=== PATIENT | male | born 1995 | race Caucasian/White ===

== ENCOUNTER 2017-05-25 21:54 | Emergency (ER) | payer OTHER ==
[~2017-05-25] VITALS: Ht 177.8 cm; Wt 90.4 kg
[~2017-05-25 21:54] MED LIST: ALBU1AER9 INH; BECL0.3A INH; MTR/400 PO; VLT500 PO
[2017-05-25 22:04] VITALS: TEMP 37.5; Ht 177.8 cm; Wt 90.4 kg
[2017-05-25 22:15] VITALS: O2SAT 94
[2017-05-25 23:02] LABS: BUN/CREATININE RATIO 13.7 (10-20); CALCIUM 8.3 mg/dl (8.5-10.1); CREATININE 1.02 mg/dl (0.60-1.40); POTASSIUM 3.5 mmol/L (3.5-5.1)
--- NOTE | 2017-05-26 03:38 | EMERGENCY ROOM VISIT NOTE ---
History Report prepared by Scribe: Violet Mckeon Under the Supervision of: Dr. Shai Sebastian M.D. First contact with patient: 21:57 Chief Complaint: ALCOHOL OVERDOSE Stated Complaint: ETOH History of Present Illness The patient is a 21 year old male who presents to the Emergency Room with complaints of an alcohol overdose. He was brought to the ED via EMS. Nursing staff reports he was drinking at [facility] downw all day. The patient denies any recent trauma or injuries. He has no complaints at today's visit. EMS reports he vomited once in the field. Pt denies LOC, headache, fevers, chills, diaphoresis, visual changes, neck pain, chest pain, breathing difficulties, abdominal pain, back pain, urinary symptoms, numbness, weakness, lymphadenopathy , rash, or other complaints. Source of History: patient, EMS, nursing staff History Limited By: intoxication Onset: APPLICATION ARCHITECT Position: other (global) Timing: constant Associated Symptoms: + nausea, + vomiting Review of Systems See HPI for pertinent positives and negatives. ROS is limited secondary to patients current condition. Past Medical & Surgical Medical Problems: (1) Asthma (2) Meningitis (3) Pneumonia Surgical Problems: (1) History of tonsillectomy Family History FH: heart disease Hypertension Social History Smoking Status: Never Smoker Alcohol Use: occasionally Drug Use: none Marital Status: single Housing Status: lives with roommate Occupation Status: [employer] Current/Historical Medications Unable to Obtain Active Prescriptions or Reported Meds Allergies Coded Allergies: No Known Allergies (Unverified , 08/13/15) Physical Exam Vital Signs Date Time Temp Pulse Resp B/P (MAP) Pulse Ox O2 Delivery O2 Flow Rate FiO2 05/26/17 01:45 97 05/26/17 01:18 103 16 129/53 94 Room Air 05/26/17 00:07 109 16 122/53 93 Room Air 05/25/17 23:15 113 16 126/57 94 Room Air 05/25/17 22:15 94 Room Air 05/25/17 22:09 95 05/25/17 22:04 37.5 104 18 148/75 98 Room Air 05/25/17 22:04 98 Physical Exam GENERAL: Intoxicated, 21 year old male, well appearing, no distress HENT: Normocephalic, atraumatic. Oropharynx unremarkable. EYES: PERRL. Erythematous conjunctiva. Sclera non-icteric. NECK: Supple. No nuchal rigidity. FROM. RESPIRATORY: CTA CARDIAC: RRR GI/ABDOMEN: Soft, non distended. No tenderness to palpation. No rebound or guarding. No masses. RECTAL: Deferred. MUSCULOSKELETAL: No edema. No discoloration. Gross motor strength 5/5 bilaterally. NEURO: Altered sensorium. No sensory or motor deficits noted. Speech slurred. SKIN: No rash or jaundice noted. LYMPH: No adenopathy. Medical Decision & Procedures Laboratory Results 05/25/17 22:20 Test 05/25/17 22:20 Anion Gap 9.0 mmol/L (3-11) Est Creatinine Clear Calc Drug Dose 129.6 ml/min Estimated GFR () 121.2 Estimated GFR (Non- 104.6 BUN/Creatinine Ratio 13.7 (10-20) Calcium Level 8.3 mg/dl (8.5-10.1) Ethyl Alcohol mg/dL 394.0 mg/dl (0-3) Laboratory results reviewed by me ED Course 2158: The patient was evaluated in room B2. A complete history and physical exam was performed. 2220: The patients TRINY is 394. 0315: The patient was reassessed. He is hemodynamically stable and resting. 0330: This patient is a sign out to Dr. Talley at the end of my shift. Medical Decision Prior records/ancillary studies reviewed. Triage Nursing notes reviewed and agree them. Additional history obtained from EMS. The patient's history was concerning for altered mental status and a possible alcohol overdose. Differential diagnosis: Etiologies such as toxicologic, infection, hypoglycemia, electrolyte abnormalities, cardiac sources, intracerebral event, neurologic, as well as others were entertained. Physical examination: As above ER treatment provided: Monitoring Aspiration precautions The patient was frequently reassessed. Diagnostic interpretation by me: Cardiac monitoring did not reveal any evidence of dysrhythmia. The labs revealed normal chemistries. The patient's blood alcohol level was 394 mg/dL. This appears to be related to an isolated overdose of alcohol. By the evaluation outlined above emergent etiologies such as trauma, infection , hypoglycemia, electrolyte abnormalities, cardiac sources, intracerebral event , neurologic,as well as others were deemed relatively unlikely. The patient is still intoxicated, further time will be necessary for the alcohol to clear. The case was signed out to Dr. Talley at the change of shift. Medication Reconcilliation Current Medication List: was personally reviewed by me Impression Primary Impression: Alcohol intoxication Scribe Attestation The scribe's documentation has been prepared under my direction and personally reviewed by me in its entirety. I confirm that the note above accurately reflects all work, treatment, procedures, and medical decision making performed by me. Departure Information Dispostion Still a Patient (This patient is a sign out to Dr. Talley at the end of my shift. ) Prescriptions Unable to Obtain Active Prescriptions or Reported Meds Referrals No Doctor, Assigned (PCP) Forms HOME CARE DOCUMENTATION FORM, IMPORTANT VISIT INFORMATION Patient Instructions Alcohol Abuse - [facility], Alcohol Intoxication - [facility], [facility]: [employer] Students and Alcohol Related Visits, My [facility] Additional Instructions Do not drive or work for 24 hours. Ibuprofen may be used for headache. Eat a healthy diet and drink plenty of fluids. Consume alcohol only in moderation. Return to the emergency department for fevers, vomiting, abdominal pain, chest pain, passing out, or as needed. Follow-up with your primary care physician in 2 to 3 days for a recheck of your current condition.
--- NOTE | 2017-05-26 07:17 | EMERGENCY ROOM VISIT NOTE ---
ED Visit Note First contact with patient: 07:16 This case was signed out to me at change of shift around 3 AM. The patient rested comfortably throughout the night. His vital signs remain stable. Once the patient was more awake this morning, I had a conversation with him about the hazards of such excessive alcohol use. I've encouraged him to avoid drinking this much in the future. I've suggested that he take plenty of clear liquids throughout the day today and use Tylenol or Motrin for headache.
[2017-05-26 08:16] VITALS: BP 98/47; PULSE 99; O2SAT 100
== END 2017-05-26 08:16 | disposition home or self-care (01) ==
LOC: EDBD 21:54 → C.EDB 21:55
DX: F10.129 Alcohol abuse with intoxication, unspecified (principal); Y90.8 Blood alcohol level of 240 mg/100 ml or more; J45.909 Unspecified asthma, uncomplicated; Z86.61 Personal history of infections of the central nervous system; Z98.890 Other specified postprocedural states; Z82.49 Family history of ischemic heart disease and other diseases of the circulatory system